=== PATIENT | female | born 1975 | race Caucasian/White ===

== ENCOUNTER 2017-09-21 22:41 | Emergency (ER) | payer SELFPAY | END 2017-09-22 00:02 | disposition home or self-care (01) | LOC: D.ER 22:41 | DX: L03.116 Cellulitis of left lower limb (principal); T81.4XXA Infection following a procedure, initial encounter; L03.90 Cellulitis, unspecified ==

== ENCOUNTER 2019-06-11 19:01 | Emergency (ER) | payer SELFPAY ==
[~2019-06-11] VITALS: Ht 175.3 cm; Wt 61.4 kg
[2019-06-11 19:06] VITALS: Ht 175.3 cm; Wt 61.4 kg
[2019-06-11] MEDS ORDERED: ZESTRIL10 MG PO (19:08)
[2019-06-11] MEDS ORDERED: ZOLOFT100 MG PO (19:08)
[2019-06-11] MEDS ORDERED: ESTRACE 0.5 MG0.5 MG PO (19:08)
[2019-06-11] MEDS ORDERED: KEFLEX500 MG PO (19:57)
[2019-06-11 20:34] VITALS: BP 132/77
== END 2019-06-11 20:34 | disposition home or self-care (01) ==
LOC: D.ER 19:01
DX: R21 Rash and other nonspecific skin eruption (principal); L01.09 Other impetigo